=== PATIENT | female | born 1985 | race Caucasian/White ===

== ENCOUNTER 2018-12-23 05:35 | Day surgery (SDC) | payer MEDICARE ==
[2018-12-23] MEDS: BUPIVACAINE 0.5%/EPI (SDV) 30 ML INJ (07:22)
[2018-12-23] MEDS ORDERED: LABETALOL HCL 20MG INJ IV (07:30)
[2018-12-23] MEDS ORDERED: KETOROLAC 30 MG INJ IV ×2 (07:30→09:00)
[2018-12-23] MEDS ORDERED: hydrALAzine 20 MG INJ IV (07:30)
[2018-12-23] MEDS ORDERED: MEPERIDINE 25 MG INJ IV (07:30)
[2018-12-23] MEDS ORDERED: ONDANSETRON 4 MG INJ IV ×2 (07:30→09:00)
[2018-12-23] MEDS ORDERED: HYDROmorphONE 1 MG/5 ML IV SYRINGE IV ×3 (07:30)
[2018-12-23] MEDS ORDERED: DIPHENHYDRAMINE 50 MG INJ IV (07:30)
[2018-12-23] MEDS ORDERED: METOCLOPRAMIDE 10 MG INJ (07:34)
[2018-12-23] MEDS ORDERED: MIDAZOLAM 1 MG/ML 2 ML INJ (07:34)
[2018-12-23] MEDS ORDERED: CEFAZOLIN 1 GM INJ (07:45)
[2018-12-23] MEDS ORDERED: HYDROmorphONE 2 MG/ML SYG (08:12)
[2018-12-23] MEDS ORDERED: ROCURONIUM 50 MG INJ (08:23)
[2018-12-23] MEDS ORDERED: ROPIVACAINE 0.5 % 30 ML VIAL (08:23)
[2018-12-23] MEDS ORDERED: NEOSTIGMINE 10 MG INJ (08:23)
[2018-12-23] MEDS ORDERED: PROPOFOL 20 ML (08:23)
[2018-12-23] MEDS ORDERED: ONDANSETRON 4 MG INJ (08:23)
[2018-12-23] MEDS ORDERED: KETOROLAC 30 MG INJ (08:25)
[2018-12-23] MEDS ORDERED: GLYCOPYRROLATE 0.4 MG INJ (08:32)
[2018-12-23] MEDS ORDERED: HYDROCODONE/APAP (5/325) TAB PO (09:00)
[2018-12-23] MEDS ORDERED: morphine 4 MG/ML VIAL IV (09:00)
[2018-12-23] MEDS ORDERED: IBUPROFEN 600 MG TAB PO (09:00)
[2018-12-23] MEDS: HYDROCODONE/APAP (5/325) TAB PO (09:57)
== END 2018-12-23 10:32 | disposition home or self-care (01) ==
LOC: SDS 05:35
DX: K80.10 Calculus of gallbladder with chronic cholecystitis without obstruction (principal); Z87.891 Personal history of nicotine dependence; J45.909 Unspecified asthma, uncomplicated
CPT/HCPCS: 47562; 88304